=== PATIENT | female | born 1960 | race Caucasian/White ===

== ENCOUNTER 2020-12-05 15:00 | Inpatient (IN) | payer BC ==
[2020-12-05 15:53] LABS: Absolute Lymphocytes (CBC) 0.7 K/uL (0.7-4.9); Basophils % 0.3 % (0-1.3); Lymphocytes % 4.6 % (15.3-44.8); RBC Red Blood Cell Count 3.18 M/uL (3.86-4.86)
[2020-12-05 15:56] LABS: Protime INR 1.1
[2020-12-05 15:58] LABS: Potassium 3.7 mmol/L (3.5-5.1)
[2020-12-05 16:04] LABS: Hematocrit 20.9 % (36.0-45.0)
--- NOTE | 2020-12-05 16:38 | RAD REPORT ---
EXAM DESCRIPTION: US - Transvaginal Study Probe - 12/05/2020 4:25 pm CLINICAL HISTORY: VAGINAL BLEEDING Pelvic pain. COMPARISON: No comparisons FINDINGS: The endometrial stripe is thickened measuring 17 millimeters. The uterus measures 7.6 cent imeters in long axis. The ovaries are not visualized. Nabothian cyst noted. No free fluid is identifi ed. IMPRESSION: Endometrial thickening which is abnormal for a patient of this age. Recommend gynecologi c referral/consultation.
[2020-12-05] MEDS ORDERED: NA CHLORIDE 0.9% 1,000 ML ONE (17:14)
--- NOTE | 2020-12-05 17:33 | EDPHYS ---
Physician Documentation [facility] Name: Cassie Thompson Age: 60 yrs Sex: Female : 1960 Arrival Date: 12/05/2020 Time: 15:05 Bed 13 Private MD: ED Physician Chandler Vázquez HPI: 12/05 16:21 This 60 yrs old Female presents to ER via EMS with complaints of Vaginal kb Bleeding. 16:21 The patient presents with vaginal bleeding that is heavy, with clots. Onset: The kb symptoms/episode began/occurred this morning. Modifying factors: The symptoms are alleviated by nothing, the symptoms are aggravated by nothing. Associated signs and symptoms: Pertinent positives: vaginal bleeding. Severity of symptoms: At their worst the symptoms were moderate, in the emergency department the symptoms are unchanged. The patient has not experienced similar symptoms in the past. The patient has not recently seen a physician. Pt reports she woke up with vaginal bleeding that was heavy. States she has been passing clots as well. States she has had 2 syncopal episodes which prompted her calling 911. Reports dizziness and lightheadedness upon changing positions. . Historical: - Allergies: 15:00 Unknown antibiotic; rb3 - Home Meds: 15:00 amlodipine oral [Active]; rb3 - PMHx: 15:00 Hypertension; rb3 ROS: 16:20 Positive for vaginal bleeding. kb 16:20 Constitutional: Negative for fever, chills, and weight loss. 16:20 Neuro: Positive for dizziness, syncope. 16:20 All other systems are negative. Exam: 16:21 Constitutional: This is a well developed, well nourished patient who is awake, alert, kb and in no acute distress. Head/Face: Normocephalic, atraumatic. ENT: Moist Mucous membranes Cardiovascular: Regular rate and rhythm with a normal S1 and S2. No gallops, murmurs, or rubs. No pulse deficits. Respiratory: Respirations even and unlabored. No increased work of breathing, no retractions or nasal flaring. Skin: Warm, dry with normal turgor. Normal color. MS/ Extremity: Pulses equal, no cyanosis. Neurovascular intact. Full, normal range of motion. Neuro: Awake and alert, GCS 15, oriented to person, place, time, and situation. Moves all extremities. Normal gait. Psych: Awake, alert, with orientation to person, place and time. Behavior, mood, and affect are within normal limits. 16:21 Abdomen/GI: Inspection: obese Bowel sounds: normal, Palpation: soft, in all quadrants, moderate abdominal tenderness, in the suprapubic area and left lower quadrant. 16:25 Constitutional: The patient appears pale. kb 17:44 : Pelvic Exam: External exam: is normal, Speculum exam: mild bleeding, blood clots in kb vaginal vault, discharge, bloody, the technical service specialist was present for the exam. Vital Signs: 15:30 BP 114 / 91; Pulse 71; Resp 16; Temp 98.1; Pulse Ox 100% ; bp 16:30 BP 119 / 55; Pulse 80; Resp 15; Pulse Ox 100% ; bp 17:30 BP 108 / 67; Pulse 77; Resp 16; Pulse Ox 100% ; bp 18:15 BP 115 / 57; Pulse 70; Resp 20; Temp 98.2; Pulse Ox 100% ; bp 19:15 BP 129 / 68; Pulse 81; Resp 11; Temp 98.1(O); Pulse Ox 100% on R/A; Pain 0/10; fu 20:15 BP 120 / 64; Pulse 84; Resp 10; Temp 98.1(O); Pulse Ox 100% on R/A; fu 20:40 BP 124 / 90; Pulse 88; Resp 11; Temp 98.1(O); Pulse Ox 100% on R/A; fu MDM: 15:07 Patient medically screened. kb 16:20 Data reviewed: vital signs, nurses notes. Data interpreted: Pulse oximetry: on room air kb is 100 %. Interpretation: normal. 17:24 Counseling: I had a detailed discussion with the patient and/or guardian regarding: the kb historical points, exam findings, and any diagnostic results supporting the discharge/admit diagnosis, lab results, radiology results, the need for further work-up and treatment in the hospital. Physician consultation: Solomon Reeves MD was contacted at 17:24, regarding admission, to labor and delivery, patient's condition, and will see patient in inpatient room. 17:24 Physician consultation: Parish Banegas MD was contacted at 17:26, regarding consult, kb patient's condition, and will see patient in inpatient room. 12/05 15:13 Order name: Basic Metabolic Panel; Complete Time: 15:59 kb 12/05 15:13 Order name: CBC with Diff; Complete Time: 17:43 kb 12/05 15:29 Order name: Type And Screen kb 12/05 15:29 Order name: Protime (+inr); Complete Time: 16:08 kb 12/05 15:29 Order name: Ptt, Activated; Complete Time: 16:08 kb 12/05 15:13 Order name: US Transvaginal Study (Probe); Complete Time: 16:44 kb 12/05 16:03 Order name: Glucose, Ancillary Testing; Complete Time: 16:08 EDMS 12/05 16:49 Order name: Packed RBC Leukored EDMS 12/05 17:36 Order name: SARS-COV-2 RT PCR; Complete Time: 17:43 EDMS 12/05 17:39 Order name: CBC Smear Scan EDMS 12/05 18:27 Order name: ABO/RH no charge EDMS 12/05 15:13 Order name: IV Saline Lock; Complete Time: 15:55 kb 12/05 15:13 Order name: Labs collected and sent; Complete Time: 15:55 kb 12/05 15:13 Order name: NPO; Complete Time: 16:10 kb 12/05 15:29 Order name: EKG; Complete Time: 15:30 kb 12/05 15:29 Order name: EKG - Nurse/Tech; Complete Time: 15:55 kb 12/05 16:29 Order name: Pelvic Exam Setup; Complete Time: 17:13 kb Administered Medications: 16:30 Drug: NS 0.9% 1000 ml Route: IV; Rate: 1000 ml; Site: right antecubital; bp 18:56 Follow up: IV Status: Completed infusion bp Disposition Summary: 12/05/20 17:33 Hospitalization Ordered Hospitalization Status: Observation kb Provider: Solomon Reeves Condition: Fair kb Problem: new kb Symptoms: are unchanged kb Bed/Room Type: Standard kb [facility]12[facility] 17:34[facility] kb Room Assignment: [facility]-(12/05/20 20:05) cg Diagnosis - Abnormal uterine and vaginal bleeding, unspecified kb - Anemia, unspecified kb - Syncope kb Forms: - Medication Reconciliation Form kb - SBAR form kb Addendum: 12/07/2020 07:38 Co-signature as Attending Physician, Chandler Vázquez MD I agree with the assessment and c vasquez plan of care. Signatures: Dispatcher [employer] EDMS Brandi Beckman, PRODUCT SUPPORT ANALYST-Jaquelin POWERSP-Chandler Barriga MD MD cha Garcia, Cindy, RN RN cg Cb Lau, RN RN bp Nery Neely, RN RN rb3 Corrections: (The following items were deleted from the chart) 12/05 15:24 15:13 Orthostatics ordered. kb kb 15:41 15:14 ABO/RH TYPING+BB.LAB.BRZ ordered. EDMS EDMS 16:43 15:30 CORONAVIRUS+MR.LAB.BRZ ordered. EDMS EDMS 17:34 17:33 Telemetry/MedSurg (observation) kb kb 17:34 17:33 kb kb 20:05 17:34 kb
--- NOTE | 2020-12-05 17:33 | ER ---
Nurse's Notes [facility] Name: Csasie Thompson Age: 60 yrs Sex: Female : 1960 Arrival Date: 12/05/2020 Time: 15:05 Bed 13 Private MD: Diagnosis: Abnormal uterine and vaginal bleeding, unspecified;Anemia, unspecified;Syncope Presentation: 12/05 15:00 Chief complaint: EMS states: 60 yr. old, A \T\ O x 4, has been having vaginal bleeding rb3 off and on for the past couple of years, but the last 2-3 days it has been really heavy. Blood is bright red and has clots. Pt has passed out a couple times at home due to the bleeding. Recently had blood work done at Dr. Banegas'john and the suspect that she is anemic. She started having diarrhea this morning. Has an allergy to an unknown antibiotic. Only history is hypertension and seasonal allergies. Only medication is Amlodipine, did not take the medication this morning. Orthostatics were positive. Systolic 99, Trendelenburg 118, and the last BP 106/68. BS 206. Has not had a hysterectomy. 15:00 Risk Assessment: Do you want to hurt yourself or someone else? Patient reports no rb3 desire to harm self or others. Onset of symptoms was December 02, 2020. 15:00 Method Of Arrival: EMS: [facility] rb3 15:00 Acuity: CLAUDIA 3 rb3 Triage Assessment: 15:30 General: Appears distressed, uncomfortable, Behavior is cooperative, appropriate for bp age, anxious. Pain: Complains of pain in pelvis. EENT: No deficits noted. Neuro: Level of Consciousness is awake, alert, obeys commands, Oriented to Appropriate for age. Cardiovascular: No deficits noted. Respiratory: No deficits noted. GI: No signs and/or symptoms were reported involving the gastrointestinal system. : Reports vaginal bleeding that is heavy flow. Derm: No deficits noted. Musculoskeletal: No deficits noted. Historical: - Allergies: 15:00 Unknown antibiotic; rb3 - Home Meds: 15:00 amlodipine oral [Active]; rb3 - PMHx: 15:00 Hypertension; rb3 Screenin:30 Abuse screen: Denies threats or abuse. Denies injuries from another. Nutritional bp screening: No deficits noted. Tuberculosis screening: No symptoms or risk factors identified. Fall Risk None identified. Assessment: 15:30 General: SEE TRIAGE NOTE.. bp 16:30 Reassessment: No changes from previously documented assessment. Patient and/or family bp updated on plan of care and expected duration. Pain level reassessed. Patient is alert, oriented x 3, equal unlabored respirations, skin warm/dry/pink. 17:30 Reassessment: CONSENT FOR BLOOD SIGNED AND WITNESSED. BLOOD REQUESTED. bp 18:15 Reassessment: No changes from previously documented assessment. Patient and/or family bp updated on plan of care and expected duration. Pain level reassessed. Patient is alert, oriented x 3, equal unlabored respirations, skin warm/dry/pink. 1ST UNIT PRBC STARTED. PER POULTRY SERVICE TECHNICIAN, PT CLEARED FOR TRANSFER TO L\T\D AFTER 1ST UNIT PRBC. 19:30 Reassessment: No changes from previously documented assessment. Patient and/or family fu updated on plan of care and expected duration. Pain level reassessed. Patient is alert, oriented x 3, equal unlabored respirations, skin warm/dry/pink. blood transfusion ongoing. No untoward blood transfusion reaction noted. 20:40 Reassessment: Patient and/or family updated on plan of care and expected duration. Pain fu level reassessed. Patient is alert, oriented x 3, equal unlabored respirations, skin warm/dry/pink. Blood transfusion finished without untoward reaction, tolerated well by patient. Vital Signs: 15:30 BP 114 / 91; Pulse 71; Resp 16; Temp 98.1; Pulse Ox 100% ; bp 16:30 BP 119 / 55; Pulse 80; Resp 15; Pulse Ox 100% ; bp 17:30 BP 108 / 67; Pulse 77; Resp 16; Pulse Ox 100% ; bp 18:15 BP 115 / 57; Pulse 70; Resp 20; Temp 98.2; Pulse Ox 100% ; bp 19:15 BP 129 / 68; Pulse 81; Resp 11; Temp 98.1(O); Pulse Ox 100% on R/A; Pain 0/10; fu 20:15 BP 120 / 64; Pulse 84; Resp 10; Temp 98.1(O); Pulse Ox 100% on R/A; fu 20:40 BP 124 / 90; Pulse 88; Resp 11; Temp 98.1(O); Pulse Ox 100% on R/A; fu ED Course: 15:05 Patient arrived in ED. rb3 15:07 Brandi Beckman FNP-C is [facility]. kb 15:07 Chandler Vázquez MD is Attending Physician. kb 15:11 Cb Lau, RN is Primary Nurse. bp 15:12 Triage completed. rb3 15:30 Arm band placed on. bp 15:30 Patient has correct armband on for positive identification. Bed in low position. Call bp light in reach. Side rails up X2. Adult w/ patient. 15:55 Initial lab(s) drawn, by me, sent to lab. EKG done, by ED staff, reviewed by Brandi em1 Rk TOUSSAINT COVID swab sent to lab. T\T\S collected, blood band applied to patient. Inserted saline lock: 20 gauge in right antecubital area, using aseptic technique. Blood collected. 16:25 US Transvaginal Study (Probe) In Process Unspecified. EDMS 17:33 Solomon Reeves MD is Hospitalizing Provider. kb 21:00 No provider procedures requiring assistance completed. fu 21:30 Patient admitted, IV remains in place. fu Administered Medications: 16:30 Drug: NS 0.9% 1000 ml Route: IV; Rate: 1000 ml; Site: right antecubital; bp 18:56 Follow up: IV Status: Completed infusion bp Outcome: 17:33 Decision to Hospitalize by Provider. kb 22:10 Admitted to L \T\ D, accompanied by tech, via stretcher, room 271, Report called to L\T\D fu staff 22:10 Condition: good 22:10 Instructed on the need for admit, Demonstrated understanding of instructions. 22:13 Patient left the ED. fu Signatures: Dispatcher [employer] EDMS Brandi Beckman FNP-C FNP-Ckb Martinez, Eric em1 Gurjit Moseley, SHANICE RN Cb Serra, RN RN Nery Lowery, RN RN rb3 Corrections: (The following items were deleted from the chart) 15:14 15:00 Chief complaint: EMS states: 60 yr. old, A \T\ O x 4, has been having vaginal rb3 bleeding off and on for the past couple of years, but the last 2-3 days it has been really heavy. Blood is bright red and has clots. Pt has passed out a couple times at home due to the bleeding. Recently had blood work done at Dr. Banegas's and the suspect that she is anemic. She started having diarrhea this morning. Has an allergy to an unknown antibiotic. Only history is hypertension and seasonal allergies. Only medication is Amlodipine. Orthostatics were positive. Systolic 99, Trendelenburg 118, and the last BP 106/68. BS 206. Has not had a hysterectomy rb3 17:15 15:30 BP 114 / 91; Pulse 71bpm; Resp 16bpm; Pulse Ox 100%; bp bp 22:57 22:55 Reassessment: Patient and/or family updated on plan of care and expected fu duration. Pain level reassessed. Patient is alert, oriented x 3, equal unlabored respirations, skin warm/dry/pink. Blood transfusion finished without untoward reaction, tolerated well by patient fu
[2020-12-05 17:39] LABS: Basophilic Stippling 1+; Blood Morphology Comment NOTED (NOT SEEN); Hypochromasia 1+; Platelet Estimate ADEQ; Polychromasia SLIGHT; White Blood Cell Scan OK (OK)
[2020-12-05] MEDS ORDERED: NA CHLORIDE 0.9% 250 ML ONE (18:13)
--- NOTE | 2020-12-05 21:33 | P.SSS ---
Patient History Date of Service: 12/05/20 Reason for admission: SEVERE VAGINAL BLEEDING. History of Present Illness: ROMY HAS HTN AND NEW DIAGNOSIS OF RA. SHE STARTED TO HAVE SEVERE VAGINAL BLEEDING OFF AND ON SINCE MONDAY. HER HG IS DOWN TO 6 GM AND IT IS THE REASON FOR SYNCOPE. Allergies No Known Allergies Allergy (Unverified 12/05/20 20:10) Home medications list reviewed: Yes - Past Medical/Surgical History -: HTN -: ANEMIA LUCAS IN PROCESS -: NEW RA. - Social History Smoking Status: Never smoker Review of Systems 10-point ROS is otherwise unremarkable General: Weakness, Malaise Genitourinary: As per HPI Physical Examination - Physical Exam General: Oriented x3, Mild distress, Obese, Other (PALLOR) HEENT: Atraumatic, PERRLA, Mucous membr. moist/pink, EOMI, Sclerae nonicteric Neck: Supple, 2+ carotid pulse no bruit, No LAD, Without JVD or thyroid abnormality Respiratory: Clear to auscultation bilaterally, Normal air movement Cardiovascular: Regular rate/rhythm, Normal S1 S2 Gastrointestinal: Normal bowel sounds, No tenderness Musculoskeletal: No tenderness Integumentary: No rashes Neurological: Normal gait, Normal speech, Normal strength at 5/5 x4 extr, Normal tone, Normal affect Lymphatics: No axilla or inguinal lymphadenopathy - Studies Laboratory Data (last 24 hrs) 12/05/20 15:30: PT 12.7 H, INR 1.10, APTT 23.2 L 12/05/20 15:30: WBC 16.20 H, Hgb 6.1 L*, Hct 20.9 L*, Plt Count 363 12/05/20 15:30: Sodium 138, Potassium 3.7, BUN 19 H, Creatinine 0.84, Glucose 154 H - Diagnosis (Problem(s)) (1) Vagina bleeding Current Visit: Yes Status: Acute Plan: DR. PATRICK TO DO BIOPSY IN AM . RULE OUT MALIGNANCY. (2) Syncope Current Visit: Yes Status: Acute Plan: FROM SEVERE ANEMIA. TRANSFUSE 3 UNITS TOTAL. (3) Anemia Current Visit: Yes Status: Acute Plan: ABOVE. (4) Rheumatoid arthritis Current Visit: Yes Status: Acute - Disposition Disposition: ROUTINE DISCHARGE
[2020-12-05] MEDS ORDERED: NA CHLORIDE 0.9% 0 ML ONE (23:01)
[2020-12-05] MEDS ORDERED: NA CHLORIDE 0.9% 100 ML ONE (23:02)
[2020-12-06] MEDS ORDERED: ACETAMINOPHEN 500 MG TAB PO PRN (00:02)
[2020-12-06] MEDS ORDERED: NA CHLORIDE 0.9% 1,000 ML IV SCH (00:02)
[2020-12-06 00:15] VITALS: BMI 33.9
[2020-12-06] MEDS: ZOLPIDEM TARTRATE 10 MG TABLET PO PRN ×2 (00:18→23:22)
[2020-12-06] MEDS ORDERED: ZOLPIDEM TARTRATE 10 MG TABLET ONE (00:39)
[2020-12-06] MEDS ORDERED: NA CHLORIDE 0.9% 500 ML ONE (01:52)
[2020-12-06] MEDS ORDERED: D5LR 1,000 ML IV ONE (05:14)
[2020-12-06] MEDS ORDERED: Ringers Lactate 1,000 ML IV SCH (06:00)
[2020-12-06 06:22] LABS: Potassium 3.6 mmol/L (3.5-5.1)
[2020-12-06] MEDS ORDERED: ESTROGENS,CONJ 25 MG IV IM ONE ×2 (07:20→08:00)
[2020-12-06] MEDS ORDERED: FEXOFENADINE 180 MG TAB PO PRN (07:20)
[2020-12-06] MEDS ORDERED: WATER FOR INJ,STERILE 10 ML IM ONE (08:00)
[2020-12-06] MEDS ORDERED: WATER FOR INJ,STERILE 10 ML IV ONE ×3 (08:00→16:00)
--- NOTE | 2020-12-06 08:01 | EKG ---
Test Date: 2020-12-05 Test Time: 15:45:07 Musculoskeletal Physician: DAVID MEASUREMENT RESULTS: Intervals: Rate: 79 NE: 154 QRSD: 90 QT: 434 QTc: 497 [place]: P: 74 NE: 154 QRS: 68 T: 38 INTERPRETIVE STATEMENTS: Normal sinus rhythm Prolonged QT Abnormal ECG No previous ECG available for comparison Electronically Signed On 12-06-20 08:00:19 CDT by Rufino Curtis
[2020-12-06 08:26] LABS: Absolute Lymphocytes (CBC) 1.7 K/uL (0.7-4.9); Basophils % 0.8 % (0-1.3); Hematocrit 23.9 % (36.0-45.0); Lymphocytes % 11.5 % (15.3-44.8); MPV 9.1 fL (7.6-11.3); RBC Red Blood Cell Count 3.26 M/uL (3.86-4.86)
[2020-12-06] MEDS ORDERED: AMLODIPINE 10 MG TAB PO SCH (09:00)
[2020-12-06 09:39] LABS: Hematocrit 24.6 % (36.0-45.0)
[2020-12-06 09:55] LABS: Anisocytosis 2+; Blood Morphology Comment NOTED (NOT SEEN); Platelet Estimate ADEQ; Platelets, Giant PRESENT; White Blood Cell Scan OK (OK)
--- NOTE | 2020-12-06 09:57 | PREOPHP ---
Date of Admission: 12/05/2020 History Of Present Illness: Cassie Thompson is a 60-year-old, nulligravida, seen in the emergency room wi th a report of 2 syncopal episodes and vaginal bleeding off and on for the last 2 years. She has see n Dr. Banegas previously and her blood count was normal. At the last visit or so, her blood count was low. She has not had a gynecologic exam. No Pap smear. No other type of exam in decades according to the patient. She has an unknown antibiotic or allergy. She asked for Ping this morning and we will give that to her. She has used 5 pads in the last several hours, which of course is fairly hea vy bleeding. She had been given 1 unit of blood and Dr. Banegas ordered 2 more units, which I think is very quite reasonable. The patient is quite alert and awake. Family History: Mother had breast cancer. Social History: The patient does not smoke. Physical Examination: HEENT: Clear. Pupils equal, round, reactive to light and accommodation. Breasts: Not examined. Heart and Lungs: Have been examined and are normal. Abdomen: Obese, but nontender. Genitalia: Her uterus is small. Both adnexa clear. Speculum exam is difficult. The patient never had children. Laboratory Data: An endometrial biopsy was obtained and sent to Pathology. Assessment And Plan: We will start the patient on Premarin 25 mg IV now and in 3-4 hours again if ne eded. If we can get the bleeding down to minimal, then we can await pathology report for the next st ep. The patient is aware though that if the bleeding does not come under control with these measures , we may have to take her to surgery and do a D and C. The possibility for endometrial carcinoma dis cussed with the patient. She says that for the last 2-3 years, she has been going 2-3 months without a period and having bleeding. She was apparently unaware that any menstrual periods in person past 55 are highly unusual and should be suspicious for endometrial cancer or at least hyperplasia. She i s taking no exogenous hormones. The only medicine she has taken is her blood pressure medication. O f note, her blood sugar was elevated on admission, but apparently she does not have a diagnosis of di abetes at this point. Dr. Banegas has seen the patient also and as stated has already extra blood, whi ch I think is reasonable given the circumstances. If we can get the bleeding to least slow down to w here we can wait for pathology report that would be acceptable. If not, the patient knows the surger y is still a potential option. DRU/MEGAN Voice ID: [id number]
[2020-12-06] MEDS ORDERED: OXYTOCIN/LR 20 UNIT/1,000 ML BAG IV SCH ×2 (10:52)
[2020-12-06] MEDS ORDERED: miSOPROStoL 100 MCG TAB PO ONE (10:53)
[2020-12-06] MEDS ORDERED: OXYTOCIN/LR 20 UNIT/1,000 ML BAG IV ONE (11:11)
[2020-12-06] MEDS ORDERED: miSOPROStoL 100 MCG TAB ONE (11:15)
[2020-12-06] MEDS ORDERED: D5LR 1,000 ML IV SCH (12:00)
--- NOTE | 2020-12-06 13:36 | PN ---
Contrary to my orders, the Premarin was given IM instead of IV. As expected, her bleeding has not be en affected. The last blood loss estimated was 190 mL since this morning. The patient is quite stab le still. Hemoglobin is down to 7 after 3 units of blood. This was explained to the patient as far as the error in giving her IM instead of IV Premarin. The pharmacist says we have no more Premarin i n the hospital. She is making efforts to get Premarin from other hospitals, but this could take cole ral hours. This has all been explained to the patient. I have given her 3 options: 1, wait for the Premarin; 2, transfer to another hospital; 3, to do a D and C at this point to staunch the bleeding. Infection, blood loss, anesthetic complications all discussed with the patient. She has chosen to wait. She knows that if we continue to give her blood that could end up causing problems too. I hav e typed and crossed her for 2 more units. DRU/MEGAN Voice ID: [id number] Report ID: [id number]
--- NOTE | 2020-12-06 13:36 | PN ---
we are waiting for the Premarin, which the patient continues to say she wishes to do. Sta rted on some IV drip Pitocin and we will give her 100 mcg Cytotec tablet with a sip of water. She kn ows this is unusual and that we normally only do this to patients. Pharmacist said that melanie stout can get up to possibly 2 doses and if after 2 doses, 1 we finally get it is not working, we will have to go to D and C. The patient again says she is not extremely concerned about surgery, but wish es to do these other measures first. She also is again aware that if we continue to give her blood p roducts at some point that itself could cause some problems. Very alert, very intelligent. DRU/MEGAN Voice ID: [id number] Report ID: [id number]
[2020-12-06] MEDS ORDERED: ESTROGENS,CONJ 25 MG IV IV ONE ×2 (14:00→16:00)
[2020-12-06 14:53] LABS: Hematocrit 22.4 % (36.0-45.0)
[2020-12-06] MEDS: miSOPROStoL 100 MCG TAB PO SCH ×3 (15:16→22:59)
--- NOTE | 2020-12-06 15:58 | P.PN ---
Subjective Date of Service: 12/06/20 Chief Complaint: SEVERE VAGINAL BLEEDING. Subjective: New changes (BLED AGAIN A LARGE CLOT CAME OUT FROM VAGINA. SP BIOPSY TODAY.) Physical Examination - Vital Signs Temperature: 98.0 F Blood Pressure: 132/72 Pulse: 82 Respirations: 18 Pulse Ox (%): 97 - Physical Exam General: Oriented x3, Mild distress, Moderate distress HEENT: Atraumatic, PERRLA, EOMI Neck: Supple, JVD not distended Respiratory: Clear to auscultation bilaterally, Normal air movement Cardiovascular: Regular rate/rhythm, Normal S1 S2 Gastrointestinal: Normal bowel sounds, No tenderness Musculoskeletal: No tenderness Integumentary: No rashes Neurological: Normal speech, Normal tone, Normal affect Lymphatics: No axilla or inguinal lymphadenopathy - Studies Laboratory Data (last 24 hrs) 12/05/20 15:30: PT 12.7 H, INR 1.10, APTT 23.2 L 12/05/20 15:30: WBC 16.20 H, Hgb 6.1 L*, Hct 20.9 L*, Plt Count 363 12/05/20 15:30: Sodium 138, Potassium 3.7, BUN 19 H, Creatinine 0.84, Glucose 154 H Medications List Reviewed: Yes Assessment And Plan - Current Problems (Diagnosis) (1) Vagina bleeding Current Visit: Yes Status: Acute Plan: DR. PATRICK TO DO BIOPSY IN AM . RULE OUT MALIGNANCY. HG WILL DROP BELLOW 7 WITH LARGE CLOTS COMING OUT. TRANSFUSE ONE MORE UNIT. THIS WILL BE FOURTH ONE. (2) Syncope Current Visit: Yes Status: Acute Plan: FROM SEVERE ANEMIA. TRANSFUSE 3 UNITS TOTAL. (3) Anemia Current Visit: Yes Status: Acute Plan: ABOVE. (4) Rheumatoid arthritis Current Visit: Yes Status: Acute
[2020-12-06] MEDS ORDERED: NA CHLORIDE 0.9% 100 ML ONE (16:37)
[2020-12-06] MEDS ORDERED: NA CHLORIDE 0.9% 100 ML IV SCH (17:00)
[2020-12-06 19:59] VITALS: O2SAT 96
[2020-12-06 20:25] LABS: Hematocrit 24.4 % (36.0-45.0)
[2020-12-07] MEDS: miSOPROStoL 100 MCG TAB PO SCH ×2 (02:48→07:10)
[2020-12-07 05:35] LABS: Hematocrit 24.4 % (36.0-45.0)
[2020-12-07 07:28] VITALS: BP 128/68; TEMP 98.7
--- NOTE | 2020-12-07 16:48 | DS ---
Date of Discharge: 12/07/2020 Hospital Course: This is a 60-year-old female, admitted through the emergency room with severe vagin al bleeding, anemia requiring transfusion. Admission hemoglobin was in the 6 range. She has subsequ ently had 4 units of blood. She is down to 23 mL of blood loss in last 12 hours. She was given IV d rip Pitocin, Cytotec 100 mcg every 4 hours, Premarin one 25 mg IM dose inadvertently, which was discu ssed with the patient and 25 mg IV. The patient is now ambulating without any type of dizziness or p roblems. She has no pain and her bleeding is down to minimal amount. She had an endometrial biopsy prior to hormone administration that is pending. She knows if the pathology report shows a cancer, s he should go to the appropriate facility for treatment. If it is noncancerous situation, she would p robably have a hysterectomy here in town and we will refer her to Dr. Roberts. We will check with Jairo Banegas this morning to see if he has any objections, but otherwise I think the patient can be dismi ssed for outpatient followup. I intend to keep her on Micronor progesterone only control pill to maintain the gains that we have established thus far. I will also give her a prescription for Cyt otec to be taken only if the bleeding starts to increase. DRU/MEGAN Voice ID: [id number] Report ID: [id number]
--- NOTE | 2020-12-07 20:47 | P.PN ---
Subjective Date of Service: 12/07/20 Chief Complaint: SEVERE VAGINAL BLEEDING. Subjective: Improving SHE HAS NOT HAD ANY MAJOR BLEEDING TODAY AND HG IS STABLE. SHE WILL FU WITH DR. PATRICK AND MY OFFICE. IF SHE HAS MALGNANCY SHE WILL BE REFERRED TO CANCER FACILITY IN [place]. Physical Examination - Vital Signs Temperature: 98.7 F Blood Pressure: 128/68 Pulse: 87 Respirations: 18 Pulse Ox (%): 96 - Studies Medications List Reviewed: Yes Assessment And Plan - Current Problems (Diagnosis) (1) Vagina bleeding Status: Acute Plan: DR. PATRICK TO DO BIOPSY IN AM . RULE OUT MALIGNANCY. HG WILL DROP BELLOW 7 WITH LARGE CLOTS COMING OUT. TRANSFUSE ONE MORE UNIT. THIS WILL BE FOURTH ONE. (2) Syncope Status: Acute Plan: FROM SEVERE ANEMIA. TRANSFUSE 3 UNITS TOTAL. (3) Anemia Status: Acute Plan: ABOVE. (4) Rheumatoid arthritis Status: Acute
== END 2020-12-07 08:30 | disposition home or self-care (01) | DRG 761 ==
LOC: ER 15:00 → ERHOLD 17:54 → 2ND-WC 21:30
PROVIDERS: ADMIT Specialist; ATTEND Specialist
PROC: 30233N1 Transfusion of Nonautologous Red Blood Cells into Peripheral Vein, Percutaneous Approach (ICD-10-PCS; principal; 2020-12-05)
DX: N93.9 Abnormal uterine and vaginal bleeding, unspecified (principal); D64.9 Anemia, unspecified; I10 Essential (primary) hypertension; M06.9 Rheumatoid arthritis, unspecified; E66.9 Obesity, unspecified; Z68.33 Body mass index [BMI] 33.0-33.9, adult; Z20.822 Contact with and (suspected) exposure to COVID-19
CPT/HCPCS: 36415; 76830; 80048; 82947; 85014; 85018; 85025; 85610; 85730; 86850; 86900; 86901; 88305; 93005; 96360; 96361; 99285; J1410; J2590; J7030; J7040; J7050; J7121; P9016; U0003